=== PATIENT | male | born 1950 | race Caucasian/White ===

== ENCOUNTER 2018-10-31 16:32 | Emergency (ER) | payer MEDICARE, OTHER ==
[~2018-10-31] VITALS: Ht 172.7 cm; Wt 109.1 kg
--- NOTE | 2018-10-31 16:45 | NUR ---
PATIENT WAS MSE BY DR KHAN IN ROOM 04B.
--- NOTE | 2018-10-31 16:58 | NUR ---
Patient discharged to home in stable conditon. Written and verbal after care instructions given. Patient verbalizes understanding of instructions.
[2018-10-31 17:11] VITALS: BP 111/68
== END 2018-10-31 17:11 | disposition home or self-care (01) ==
LOC: ER 16:32
DX: J06.9 Acute upper respiratory infection, unspecified (principal)
CPT/HCPCS: A4663